=== PATIENT | male | born 1965 | race Caucasian/White ===

== ENCOUNTER 2018-09-19 06:48 | Emergency (ER) | payer OTHER ==
[2018-09-19 07:42] LABS: EOS # 0.2 (0.04-0.40); HEMATOCRIT 43.9 % (42.0-52.0); HEMOGLOBIN 15.4 g/dL (13.5-18.0); LYMPH# 2.1 (1.50-4.00); MEAN CELL VOLUME 93 fl (78-100); MEAN CORPUSCULAR HEMOGLOBIN 33 pg (27-31); MEAN CORPUSCULAR HGB CONC 35 g/dL (33-37); MEAN PLATELET VOLUME 9.4 fl (7.4-10.4); MONO # 0.5 (0.20-0.80); NEU # 2.8 (1.40-6.50); PLATELET COUNT 256 K/mm3 (130-400); RED BLOOD COUNT 4.73 M/mm3 (4.20-5.60); RED CELL DISTRIBUTION WIDTH 12.6 % (11.5-14.5); WHITE BLOOD COUNT 5.7 K/mm3 (4.8-10.8)
[2018-09-19 07:52] LABS: POTASSIUM 4.1 mmol/L (3.5-5.1); SODIUM 141 mmol/L (136-145)
[2018-09-19 07:53] LABS: ALBUMIN 4.4 g/dL (3.5-5.0)
[2018-09-19 07:54] LABS: CALCIUM 9.2 mg/dL (8.3-10.5)
[2018-09-19 07:56] LABS: GLUCOSE 95 mg/dL (75-110); TOTAL PROTEIN 8.1 g/dL (6.4-8.3)
[2018-09-19 07:57] LABS: CARBON DIOXIDE 23 mmol/L (22-29); TOTAL BILIRUBIN 0.4 mg/dL (0.2-1.2)
[2018-09-19 08:01] LABS: AST-SGOT 27 U/L (5-34)
[2018-09-19 08:03] LABS: ALT/SGPT 32 U/L (0-55)
[2018-09-19 08:04] LABS: LIPASE 15 U/L (8-78)
[2018-09-19 08:11] LABS: TROPONIN-I < 0.03 ng/mL (<0.030)
[2018-09-19] MEDS ORDERED: ZANTAC150 M1 PO (08:35)
[2018-09-19 08:45] VITALS: BP 146/84
== END 2018-09-19 08:45 | disposition home or self-care (01) ==
LOC: ED 06:48
PROVIDERS: Physician Assistant
DX: K21.9 Gastro-esophageal reflux disease without esophagitis (principal); I10 Essential (primary) hypertension